=== PATIENT | male | born 1940 | race African-American/Black ===

== ENCOUNTER 2017-05-07 13:22 | Inpatient (IN) | payer OTHER ==
[~2017-05-07] VITALS: Ht 165.1 cm; Wt 108.0 kg
[2017-05-07] MEDS ORDERED: ASPIRIN81 MG PO (14:04)
[2017-05-07] MEDS ORDERED: METFORMIN HCL500 MG PO (14:04)
[2017-05-07] MEDS ORDERED: COZAAR100 MG PO (14:05)
[2017-05-07] MEDS ORDERED: AMARYL PO (14:05)
== END 2017-06-07 10:02 | disposition designated cancer center or children's hospital (05) | DRG 187 ==
LOC: ER 13:22 → MEDI 19:19 → MEDJ 19:19
PROC: 4A033R1 Measurement of Arterial Saturation, Peripheral, Percutaneous Approach (ICD-10-PCS; 2017-05-07)
PROC: BW24ZZZ Computerized Tomography (CT Scan) of Chest and Abdomen (ICD-10-PCS; 2017-05-07)
PROC: B246ZZZ Ultrasonography of Right and Left Heart (ICD-10-PCS; 2017-05-08)
PROC: 4A12X4Z Monitoring of Cardiac Electrical Activity, External Approach (ICD-10-PCS; 2017-05-08)
PROC: 0W9930Z Drainage of Right Pleural Cavity with Drainage Device, Percutaneous Approach (ICD-10-PCS; principal; 2017-05-09)
PROC: BB24ZZZ Computerized Tomography (CT Scan) of Bilateral Lungs (ICD-10-PCS; 2017-05-21)
PROC: 0W9900Z Drainage of Right Pleural Cavity with Drainage Device, Open Approach (ICD-10-PCS; 2017-05-22)
PROC: 0WP933Z Removal of Infusion Device from Right Pleural Cavity, Percutaneous Approach (ICD-10-PCS; 2017-05-22)
PROC: 0W29X0Z Change Drainage Device in Right Pleural Cavity, External Approach (ICD-10-PCS; 2017-05-26)
PROC: BB24ZZZ Computerized Tomography (CT Scan) of Bilateral Lungs (ICD-10-PCS; 2017-05-26)
PROC: BB24ZZZ Computerized Tomography (CT Scan) of Bilateral Lungs (ICD-10-PCS; 2017-06-05)
DX: J90 Pleural effusion, not elsewhere classified (principal); J95.811 Postprocedural pneumothorax; T85.628A Displacement of other specified internal prosthetic devices, implants and grafts, initial encounter; J98.11 Atelectasis; I47.1 Supraventricular tachycardia; I48.0 Paroxysmal atrial fibrillation; I10 Essential (primary) hypertension; E11.65 Type 2 diabetes mellitus with hyperglycemia